=== PATIENT | female | born 1990 | race Caucasian/White ===

== ENCOUNTER 2021-02-16 16:55 | Emergency (ER) | payer OTHER ==
[2021-02-16 17:01] VITALS: BP 145/93; PULSE 74; TEMP 97; BMI 28.3
[2021-02-16] MEDS ORDERED: KETOROLAC TROMETHAMINE 30 MG/1 ML VIAL IVPB ONE (17:30)
[2021-02-16] MEDS ORDERED: SODIUM CHLORIDE 0.9% 500 ML INFUS.BAG IV ONE (17:30)
[2021-02-16] MEDS ORDERED: METOCLOPRAMIDE HCL INJECTION 10 MG/2 ML VIAL IVPUSH ONE (17:30)
[2021-02-16] MEDS ORDERED: METOCLOPRAMIDE HCL INJECTION 10 MG/2 ML VIAL ONE (17:38)
[2021-02-16] MEDS ORDERED: KETOROLAC TROMETHAMINE 30 MG/1 ML VIAL ONE (17:38)
[2021-02-16 18:17] LABS: BASO % 0.6 % (0-2.0); EOS % 2.4 % (0-4.5); HEMATOCRIT 44.8 % (32.4-45.2); HEMOGLOBIN 15.2 GM/dL (10.7-15.3); LYMPH % 24.2 % (8-40); MCH 30.2 pg (25.7-33.7); MCHC 33.9 g/dl (32.0-36.0); MEAN CELL VOLUME 88.9 fl (80-96); MEAN PLT VOLUME 7.4 fl (7.5-11.1); NEUT % 64.8 % (42.8-82.8); PLATELET COUNT 381 10^3/uL (134-434); RBC 5.04 M/mm3 (3.60-5.2); RDW 13.2 % (11.6-15.6); WHITE BLOOD COUNT 11.2 K/mm3 (4.0-10.0)
[2021-02-16 18:30] LABS: ALBUMIN 3.8 g/dl (3.4-5.0); BLOOD UREA NITROGEN 14.5 mg/dL (7-18)
[2021-02-16 18:33] LABS: CREATININE 1.2 mg/dL (0.55-1.3)
[2021-02-16 18:35] LABS: BILIRUBIN,TOTAL 0.2 mg/dL (0.2-1); TOT PROT 7.7 g/dl (6.4-8.2)
== END 2021-02-16 19:30 | disposition home or self-care (01) ==
LOC: JER 16:55
PROC: 3E033GC Introduction of Other Therapeutic Substance into Peripheral Vein, Percutaneous Approach (ICD-10-PCS; principal; 2021-02-16)
DX: R51.9 Headache, unspecified (principal)
CPT/HCPCS: 36415; 80053; 84703; 85025; 99284-25